=== PATIENT | female | born 1960 | race Caucasian/White ===

== ENCOUNTER 2016-04-21 11:31 | Day surgery (SDC) | payer BC ==
[~2016-04-21] VITALS: Ht 170.2 cm; Wt 61.3 kg
[~2016-04-21 11:31] MED LIST: DUEXIS 800-26.1 EACH PO; ESTRACE42.5 GM VG; METOPROLOL TART25 MG PO; TOPROL XL50 MG PO; VITAMIN D1000 INTUN PO; VITAMIN D31000 UNIT PO
[2016-04-21 12:32] VITALS: BP 136/75
[2016-04-21] MEDS ORDERED: ZOFRAN4 MG PO (14:10)
[2016-04-21] MEDS ORDERED: HYDROCODON-ACE1 EAC7 PO (14:10)
[2016-04-21 14:50] VITALS: BP 116/60
[2016-04-21 15:50] VITALS: BP 112/60
[2016-04-21 16:45] VITALS: BP 130/60
== END 2016-04-21 16:45 | disposition home or self-care (01) ==
LOC: SDC 11:31
PROC: 0UT14ZZ Resection of Left Ovary, Percutaneous Endoscopic Approach (ICD-10-PCS; principal; 2016-04-21)
DX: N80.1 Endometriosis of ovary (principal); N83.292 Other ovarian cyst, left side; R10.32 Left lower quadrant pain; I10 Essential (primary) hypertension; Z88.0 Allergy status to penicillin; Z88.2 Allergy status to sulfonamides; Z82.49 Family history of ischemic heart disease and other diseases of the circulatory system; Z82.0 Family history of epilepsy and other diseases of the nervous system; Z80.0 Family history of malignant neoplasm of digestive organs; Z80.3 Family history of malignant neoplasm of breast
CPT/HCPCS: 88305; J0131; J1100; J1170; J1885; J2250; J2405; J2710; J2765; J3010